=== PATIENT | female | born 1970 | race Caucasian/White ===

== ENCOUNTER 2022-07-30 18:00 | Inpatient (IN) ==
[2022-07-30] MEDS ORDERED: Naloxone 0.4 MG/ML INJ IVP PRN (20:43)
[2022-07-30] MEDS ORDERED: Ondansetron ODT 4 MG TAB.RAPDIS SL PRN (20:43)
[2022-07-30] MEDS ORDERED: Melatonin 3 MG TABLET PO PRN (20:43)
[2022-07-30] MEDS ORDERED: Gadolinium Contrast Agent (WT Based) IV PRN (21:46)
[2022-07-31] MEDS: *HR* Heparin 5,000 UNIT/ML VIAL SQ SCH ×2 (06:12→18:33)
[2022-07-31] MEDS ORDERED: Gadolinium Contrast Agent (WT Based) IV PRN (08:13)
[2022-07-31 09:14] LABS: Hematocrit 42.3 % (35.3-44.9); Hemoglobin 14.2 g/dL (11.5-15.4); Mean Corpuscular HGB Conc 33.6 g/dL (31.6-35.5); Mean Corpuscular Hemoglobin 30.9 pg (28.0-33.3); Platelet Count 294 K/mcL (140-400); Red Cell Distribution Width 12.7 % (11.5-14.5); White Blood Count 6.8 K/mcL (4.3-11.1)
[2022-07-31 10:04] LABS: BUN/Creatinine Ratio 25 (6-26); Blood Urea Nitrogen 14 mg/dL (6-20); Calcium 9.3 mg/dL (8.6-10.3); Carbon Dioxide 25 mEq/L (23-29); Chloride 109 mEq/L (98-107); Glucose 98 mg/dL (70-105); Magnesium 1.9 mg/dL (1.6-2.6); Osmolality,Calculated 290 (280-300); Phosphorous 3.3 mg/dL (2.7-4.5); Potassium 3.8 mEq/L (3.5-5.1); Sodium 140 mEq/L (136-145)
[2022-07-31] MEDS ORDERED: *HR* LORazepam 2 MG/ML VIAL IVP PRN (11:10)
[2022-07-31] MEDS ORDERED: methylPREDNISolone 500 MG in 0.9 % Sodium Chloride 50 ML IVPB SCH (14:00)
[2022-08-01] MEDS: *HR* Heparin 5,000 UNIT/ML VIAL SQ SCH (05:05)
[2022-08-01 07:09] VITALS: BP 129/77; PULSE 73; TEMP 97.7; O2SAT 94
== END 2022-08-01 15:17 | disposition home or self-care (01) | DRG 60 ==
LOC: 3BNU → SUATTDRO 20:23
PROVIDERS: ADMIT Internal Medicine; ATTEND Internal Medicine